=== PATIENT | male | born 1960 | race African-American/Black ===

== ENCOUNTER 2020-06-12 15:09 | Emergency (ER) | payer BC ==
[~2020-06-12] VITALS: Ht 167.6 cm; Wt 88.5 kg
[~2020-06-12 15:09] MED LIST: AMARYL4 MG PO; GLUCOPHAGE XR500 MG PO; HYDROCODONE-AP1 EAC6 PO; LIPITOR10 MG PO; LISINOPRIL20 MG PO
[2020-06-12 16:10] LABS: ABSOLUTE NEUTROPHILS 5.3 thou/uL (1.4-8.2); BASOPHILS 0.2 % (0.0-2.0); EOSINOPHILS 0.8 % (0.0-3.0); HEMATOCRIT 44.5 % (42.0-52.0); MCH 29.6 pg (26.0-34.0); MCHC 33.8 g/dL (28.0-37.0); MCV 87.7 fL (80.0-100.0); MONOCYTES 8.9 % (1.0-8.0); PLATELET COUNT 238 thou/uL (150-400); POLYS 67.1 % (36.0-66.0); RBC 5.08 mil/uL (4.50-6.00); RDW 13.9 % (10.5-14.5); WBC 7.9 thou/uL (4.0-11.0)
[2020-06-12 16:20] LABS: ANION GAP 10 mmol/L (7-16); BUN 10 mg/dL (7-18); CALCIUM 9.3 mg/dL (8.5-10.1); CHLORIDE 103 mmol/L (98-107); CO2 27 mmol/L (21-32); CREATININE 1.3 mg/dL (0.7-1.3); GLUCOSE 107 mg/dL (74-106); POTASSIUM 4.3 mmol/L (3.5-5.1); SODIUM 140 mmol/L (136-145)
[2020-06-12 16:30] LABS: ALBUMIN 4.2 g/dL (3.4-5.0); SGOT 36 U/L (15-37); SGPT 64 U/L (30-65); TOTAL BILIRUBIN 0.4 mg/dL (0.2-1.0); TOTAL PROTEIN 7.9 g/dL (6.4-8.2); TROPONIN-I <0.06 ng/mL (<0.06)
[2020-06-12] MEDS ORDERED: JANUMET 50-1,01 EACH PO (16:43)
[2020-06-12] MEDS ORDERED: CYCLOBENZAPRINE5 MG PO (18:38)
[2020-06-12 18:54] VITALS: BP 148/69
--- NOTE | 2020-06-13 07:25 | EKG ---
[facility] [place] [address] ELECTROCARDIOGRAM REPORT Name: ANY ASHRAF Room #: DEP [facility].#: [id number] Admission: 06/12/20 Attend Phys: Discharge: 06/12/20 Date of : 60 Report #: [id number] THIS REPORT FOR: cc: Sonu Cochran MD, Steven A. 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
== END 2020-06-12 18:54 | disposition home or self-care (01) ==
LOC: ER 15:09
PROVIDERS: Physician Assistant
DX: R07.89 Other chest pain (principal); I10 Essential (primary) hypertension; E11.9 Type 2 diabetes mellitus without complications; E78.5 Hyperlipidemia, unspecified; Z79.899 Other long term (current) drug therapy; Z20.828 Contact with and (suspected) exposure to other viral communicable diseases